=== PATIENT | female | born 1970 | race Two or more races ===

== ENCOUNTER 2025-08-14 11:27 | Emergency (ER) | payer BC ==
[~2025-08-14] VITALS: Ht 162.6 cm; Wt 102.1 kg
[2025-08-14] MEDS ORDERED: LAMICTAL150 MG PO (12:12)
[2025-08-14 12:13] VITALS: BP 129/87; O2SAT 100
[2025-08-14] MEDS ORDERED: ABILIFY2 MG (12:13)
[2025-08-14] MEDS ORDERED: LEVOTHYROXINE150 MCG PO (12:13)
[2025-08-14] MEDS ORDERED: PRISTIQ25 MG (12:13)
[2025-08-14] MEDS ORDERED: CEFTRIAXONE SODIUM 1,000 MG VIAL IM ONE (13:00)
[2025-08-14] MEDS ORDERED: FAMOtidine 10 MG/ML (4ML VIAL) IV ONE (13:00)
[2025-08-14] MEDS ORDERED: KETOROLAC TROMETHAMINE 60 MG VIAL IM ONE (13:00)
[2025-08-14] MEDS ORDERED: TAMSULOSIN HCL 0.4 MG CAP PO ONE (13:00)
[2025-08-14 13:15] LABS: BASO % 0.6 % (0.1-1.2); EOS # 0.36 (0.04-0.54); EOS % 4.4 % (0.7-7.0); LYMPH # 2.48 (1.18-3.74); LYMPH % 30.6 % (19.3-53.1); MEAN PLATELET VOLUME 9.60 fl (9.4-12.4); MONO # 0.55 (0.24-0.82); MONO % 6.8 % (4.7-12.5); NEUT # 4.64 (1.56-6.13); NEUT % 57.4 % (34.0-71.1); RED CELL DISTRIBUTION WIDTH 18.6 % (11.6-14.4)
[2025-08-14 13:40] LABS: URINE APPEARANCE Clear; URINE BILIRRUBIN Negative (NEGATIVE); URINE BLOOD Trace; URINE COLOR Yellow; URINE GLUCOSE Negative (NEGATIVE); URINE KETONE Negative (NEGATIVE); URINE LEUKOCYTE Trace; URINE NITRATE Negative; URINE PROTEIN Negative (NEGATIVE); URINE UROBILINOGEN 0.2 E.U./dl
[2025-08-14 13:41] LABS: ALT/SGPT 25.0 U/L (12-78); AST/SGOT 31.0 U/L (15-37); BILIRUBIN TOTAL 0.36 mg/dL (0.3-1.2); BUN CREA RATIO 10.0 (7.0-25.0); CREATININE SERUM 0.72 mg/dL (0.55-1.02); GFR 84.41; GLOBULINA 3.9 G/DL (2.4-3.5); GLUCOSE FASTING 92.0 mg/dL (65-100); OSMOLALITY SERUM 277.0 MOSM/KG (275-295)
[2025-08-14 13:44] LABS: INR 0.97
[2025-08-14 13:44] LABS: URINE BACTERIA 70.8 uL (0.0-1933); URINE EPITHELIAL CELLS 10.6 uL (0.0-38.8); URINE RBC 9.5 uL (0.0-20.8); URINE WBC 97.1 uL (0.0-23.2)
[2025-08-14 13:51] LABS: URINE CAST 0.00 uL (0.0-1.40)
[2025-08-14] MEDS ORDERED: NORFLEX100MG PO (14:22)
[2025-08-14] MEDS ORDERED: BACTRIM DS TAB1 EACH PO (14:22)
[2025-08-14] MEDS ORDERED: PEPCID AC20 MG PO (14:22)
[2025-08-14] MEDS ORDERED: TAMS0.4C PO (14:22)
== END 2025-08-14 14:29 | disposition home or self-care (01) ==
LOC: ER 11:27
PROVIDERS: General Practice
DX: R10.9 Unspecified abdominal pain (principal); Z87.442 Personal history of urinary calculi